=== PATIENT | female | born 1990 | race Caucasian/White ===

== ENCOUNTER → 2017-01-30 14:12 | Outpatient (CLI) | payer BC, OTHER | END | disposition home or self-care (01) | LOC: D.MRI 14:12 | DX: M54.6 Pain in thoracic spine (principal); G89.29 Other chronic pain ==

== ENCOUNTER 2018-01-10 08:13 | Emergency (ER) | payer OTHER ==
[~2018-01-10] VITALS: Ht 152.4 cm; Wt 44.5 kg
[2018-01-10 08:18] VITALS: Ht 152.4 cm; Wt 44.5 kg
[2018-01-10] MEDS ORDERED: CYMBALTA30 MG PO (08:22)
[2018-01-10] MEDS ORDERED: IBUPROFEN200 MG PO (08:23)
[2018-01-10] MEDS ORDERED: ULTRAM50 MG PO (08:23)
[2018-01-10 09:04] LABS: ALBUMIN 4.3 g/dL (3.4-5.0); ALKALINE PHOSPHATASE 74 U/L (46-116); ALT (SGPT) 19 U/L (10-68); AMYLASE - SERUM 74 U/L (25-115); BILIRUBIN - TOTAL 1.12 mg/dL (0.2-1.3); CALC OSMOLALITY 283 mosm/kg (275-300); CALCIUM 8.7 mg/dL (8.5-10.1); CARBON DIOXIDE 26.1 mmol/L (21.0-32.0); CHLORIDE - SERUM 103 mmol/L (98-107); CREATININE - SERUM 0.7 mg/dL (0.6-1.3); GLUCOSE 112 mg/dL (74-106); LIPASE 85 U/L (73-393); POTASSIUM - SERUM 3.5 mmol/L (3.5-5.1); PROTEIN - SERUM 8.1 g/dL (6.4-8.2); SODIUM 141 mmol/L (136-145); UREA NITROGEN 17 mg/dL (7-18); eGFR NON AFRICAN AMERICAN > 90 mL/min (90-120)
[2018-01-10 09:12] LABS: APPEARANCE HAZY (CLEAR); BACTERIA FEW /hpf (NONE SEEN); BILIRUBIN NEGATIVE (NEGATIVE); COLOR YELLOW (YELLOW); EPITHELIAL CELLS 0-5 /hpf (0-5); GLUCOSE NEGATIVE (NEGATIVE); KETONE MODERATE mg/dL (NEGATIVE); MUCUS >1+ /lpf (NONE SEEN); NITRITE NEGATIVE (NEGATIVE); PROTEIN NEGATIVE (NEGATIVE); RED CELLS - URINE 0-5 /hpf (0-5); UROBILINOGEN NORMAL (NORMAL); WHITE CELLS - URINE RARE /hpf (0-5)
[2018-01-10 09:38] LABS: BASOPHILS 0.1 % (0-2); EOSINOPHILS 0.1 % (0-7); HEMATOCRIT 39.8 % (36.0-48.0); IMMATURE GRANULOCYTES 0.3 % (0-5); LYMPHOCYTES 2.9 % (15-50); MCH 30.4 pg (26.0-34.0); MCHC 35.2 g/dL (31.0-37.0); MCV 86.3 fL (80.0-100.0); MEAN PLATELET VOLUME 10.9 fL (7.4-10.4); MONOCYTES 4.1 % (2-11); NEUTROPHILS 92.5 % (40-80); PLATELET COUNT 233 10x3/uL (130-400); RBC 4.61 10x6/uL (4.00-5.40); RDW 12.1 % (11.5-14.5); WBC 10.9 10x3/uL (4.8-10.8)
[2018-01-10 10:27] LABS: HCG URINE NEGATIVE (NEGATIVE)
[2018-01-10] MEDS ORDERED: LOMOTIL TABLET1 TAB PO (11:16)
[2018-01-10] MEDS ORDERED: PHENERGAN25 M1 PO (11:16)
[2018-01-10] MEDS ORDERED: HYDROCODON-ACE1 EAC7 PO (11:16)
[2018-01-10] MEDS ORDERED: CIPRO500 MG PO (11:40)
[2018-01-10 11:55] VITALS: BP 112/71
== END 2018-01-10 11:57 | disposition home or self-care (01) ==
LOC: D.ER 08:13
PROVIDERS: Emergency Medicine
DX: K52.9 Noninfective gastroenteritis and colitis, unspecified (principal)

== ENCOUNTER → 2018-09-09 08:42 | Outpatient (CLI) | payer MEDICAID ==
[2018-01-10 08:18] VITALS: BMI 19.1
[~2018-09-09 08:42] MED LIST: CIPRO500 MG PO; CYMBALTA30 MG PO; HYDROCODON-ACE1 EAC7 PO; IBUPROFEN200 MG PO; LOMOTIL TABLET1 TAB PO; PHENERGAN25 M1 PO; ULTRAM50 MG PO
== END | disposition home or self-care (01) ==
LOC: D.HCCARDIO 08:30
PROVIDERS: ATTEND Internal Medicine Cardiovascular Disease
DX: R06.00 Dyspnea, unspecified (principal)

== ENCOUNTER → 2020-09-05 11:41 | Outpatient (CLI) | payer MEDICAID ==
[2018-01-10 08:18] VITALS: BMI 19.1
== END | disposition home or self-care (01) ==
LOC: D.NM 11:30
PROVIDERS: ATTEND Clinical Nurse Specialist Family Health
DX: K30 Functional dyspepsia (principal)